=== PATIENT | male | born 1995 | race Caucasian/White ===

== ENCOUNTER 2020-01-29 21:47 | Emergency (ER) | payer OTHER, SELFPAY ==
[2020-01-29 21:57] VITALS: BP 149/75; PULSE 90; PULSE 98; RESP 14; TEMP 36.4; O2SAT 100; O2SAT 99; BMI 31.6
--- NOTE | 2020-01-29 22:23 | ECG_ITS ---
Test Reason : OVERDOSE Blood Pressure : / mmHG Vent. Rate : 075 BPM Atrial Rate : 075 BPM P-R Int : 142 ms QRS Dur : 108 ms QT Int : 370 ms P-R-T Axes : 031 064 011 degrees QTc Int : 413 ms Normal sinus rhythm Normal ECG When compared with ECG of 22-JUN-2017 07:40, No significant change was found Referred By: Aranza Horn Electronically Signed By:VANNESSA LOBATO MD
--- NOTE | 2020-01-29 22:36 | ED.GENADULT ---
HPI - General Adult General Chief complaint: General Medical Stated complaint: substance use Time Seen by Provider: 01/29/20 22:21 Source: patient Mode of arrival: ambulatory Limitations: no limitations History of Present Illness HPI narrative: this is a 24-year-old male who presents after having taken 4 puffs of some marijuana at the [facility] and states that he then became very lightheaded and felt somewhat disoriented with exacerbation of his underlying anxiety and having this sensation of palpitations and sweating. Since that time patient states that his symptoms have completely resolved and he is requesting to be discharged to home. Currently, he denies any shortness of breath, chest pain / palpitations. Related Data Allergies Allergy/AdvReac Type Severity Reaction Status Date / Time FRESH FRUIT Allergy Unknown ITCHY FRUIT Uncoded 12/16/19 16:24 Fruit & Vegetable Daily Allergy Unknown Uncoded 11/05/19 00:00 latex Allergy Unknown Uncoded 11/05/19 00:00 Review of Systems Review of Systems: Pertinent positives and negatives as stated in HPI and 10 point review of systems is otherwise negative. [facility] Past Medical History Source: nursing notes reviewed Medical History Asthma Social History Social History Advance Directives: No Advance Directives Information Provided: No Physical Exam Vital Signs: Vital Signs: Vital Signs Temp Pulse Resp BP Pulse Ox 01/29/20 21:57 97.6 F 90 14 149/75 H 99 Body Mass Index 31.6 VITAL SIGNS: Reviewed. GENERAL: Well developed, well nourished, in no acute distress. HEAD: Normocephalic/atraumatic, EYES: PERRLA, EOMI intact without pain, no nystagmus/pallor/icterus noted EARS: Ext canals without abnormality, TMs non-bulging and non-erythematous NOSE: Nares patent bilateral OROPHARYNX: no oral lesions noted, posterior pharynx clear and non-erythematous without noted tonsillar enlargement/erythema/exudates NECK: Supple, no adenopathy LUNGS: Normal breath sounds. No adventitious sounds or accessory muscle use. SpO2<99> CARDIOVASCULAR: Regular rate and rhythm without noted murmurs, no JVD or lower extremity edema. ABDOMEN: Soft, non-tender, non-distended with bowel sounds. No rigidity. No guarding. No palpable masses or hernias noted MUSCULOSKELETAL: No tenderness, deformities, or effusions noted on gross inspection. EXTREMITIES: No cyanosis, clubbing or edema. SKIN: Inspection of the skin reveals no rashes, ulcerations, jaundice, pallor, or petechiae. NEUROLOGIC: Alert and oriented x 4. Strength and sensation to light touch were grossly intact x 4. Course Course Course Narrative: This is a 24-year-old female with history and clinical presentation consistent with side effects from excess marijuana use that has since completely resolved. Will obtain an EKG to evaluate for any evidence of arrhythmia and if found to be negative patient will be discharged home in stable condition. He has a safe ride home with his . Medical Decision Making ECG Data Attestation: I personally reviewed and interpreted this ECG as follows: Prior ECG tracings: available for review ( 06/22/2017 there are no acute changes) Interpretation: normal sinus rhythm, HR - 75, no evidence of acute ischemia, ID/QTC are within normal limits Discharge Plan Discharge Clinical Impression: Marijuana intoxication Qualifiers: Complication of substance-induced condition: with perceptual disturbance Qualified Code(s): F12.922 - Cannabis use, unspecified with intoxication with perceptual disturbance Patient Disposition: Home, Self-Care Instructions: Anxiety (ED) Additional Instructions: The patient and/or family acknowledge understanding of results (as applicable), diagnosis, treatment plan, need for follow up, and symptoms that should prompt a return to the emergency room. Referrals: Landen Francois MD [Primary Care Provider] - 2 days ( re-evaluation.)
== END 2020-01-29 22:51 | disposition home or self-care (01) ==
PROVIDERS: Emergency Provider Student in an Organized Health Care Education/Training Program; PCP Internal Medicine
DX: F12.922 Cannabis use, unspecified with intoxication with perceptual disturbance (principal); R00.2 Palpitations
CPT/HCPCS: 93005; 99283; 99284

== ENCOUNTER 2020-04-10 06:35 | Outpatient (REF) | payer OTHER, SELFPAY | END 2020-04-10 06:36 | disposition home or self-care (01) | LOC: HO.LAB 06:35 | PROVIDERS: PCP Internal Medicine; Visit Provider Internal Medicine | DX: Z20.822 Contact with and (suspected) exposure to COVID-19 (principal) | CPT/HCPCS: 36415; C9803; U0003 ==

== ENCOUNTER 2020-04-12 13:21 | Outpatient (REF) | payer OTHER, SELFPAY ==
[2020-04-12 13:50] LABS: MANUAL DIFF FLAG NO
[2020-04-12 13:57] LABS: Basophils Percent Auto 0.6 % (0-2); Eosinophils Percent Auto 0.6 % (0-4); Hematocrit 47.5 % (42-52); Hemoglobin 16.2 g/dl (14.0-18.0); Imm Gran Abs Auto 0.01 X10*3/uL (0.00-0.03); Imm Gran Pct Auto 0.2 % (0.0-0.4); Lymphocytes Absolute Auto 1.7 X10*3/uL (1.2-4.9); Lymphocytes Percent Auto 27.9 % (20-40); Mean Corpuscular HGB Conc 34.1 g/dl (31.0-36.0); Mean Corpuscular Hemoglobin 29.3 pg (27.0-33.0); Mean Corpuscular Volume 85.9 fL (80-98); Monocytes Absolute Auto 0.4 X10*3/uL (0.1-1.2); Monocytes Percent Auto 6.7 % (2-11); Platelet Count 271 X10*3/uL (160-400); Red Blood Count 5.53 X10*6/uL (4.60-5.80); Red Cell Distribution Width 11.9 % (11.0-16.0); White Blood Count 6.2 X10*3/uL (4.8-10.8)
[2020-04-12 14:37] LABS: Alanine Aminotransferase 33 U/L (0-40); Albumin Level 4.9 g/dL (3.5-5.0); Alkaline Phosphatase 66 U/L (39-117); Anion Gap 14 (12-20); Aspartate Amino Transferase 20 U/L (5-37); Bilirubin Total 0.8 mg/dL (0.0-1.0); Blood Urea Nitrogen 12 mg/dL (9-16); Calcium 9.8 mg/dL (8.4-10.2); Carbon Dioxide 27 mmol/L (22-29); Chloride 102 mmol/L (96-108); Cholesterol 208 mg/dL; Estimated Glomerular Filt Rate > 60; Glucose Random 93 mg/dL (60-115); HDL Cholesterol 45 mg/dL; LDL Cholesterol Calculated 144 mg/dl; Potassium 4.2 mmol/l (3.3-5.1); Sodium 139 mmol/L (135-145); Total Protein 8.1 g/dL (6.5-8.0); Triglycerides 95 mg/dL
[2020-04-12 15:00] LABS: Free T4 (Free Thyroxine) 1.01 ng/dL (0.71-1.85); Thyroid Stimulating Hormone 1.46 uIU/mL (0.32-4.0)
[2020-04-12 15:03] LABS: Vitamin B12 555 pg/mL (200-900)
== END 2020-04-12 13:22 | disposition home or self-care (01) ==
LOC: HO.LAB 13:21
PROVIDERS: PCP Internal Medicine; Visit Provider Internal Medicine
DX: K76.0 Fatty (change of) liver, not elsewhere classified (principal); E78.00 Pure hypercholesterolemia, unspecified
CPT/HCPCS: 36415; 80053; 80061; 82607; 82746; 84439; 84443; 85025

== ENCOUNTER 2020-04-18 08:28 | Outpatient (REF) | payer OTHER, SELFPAY ==
--- NOTE | 2020-04-18 08:34 | US_ITS ---
EXAMINATION: US ABDOMEN COMPLETE CLINICAL INFORMATION: Splenomegaly, not elsewhere classified. COMPARISON: Ultrasound abdomen complete dated 02/10/2019. TECHNIQUE: Real-time imaging of the abdominal viscera. FINDINGS: PANCREAS: The pancreas is homogeneous in echotexture without focal lesion. ABDOMINAL AORTA: The proximal, mid, and distal segments are normal in caliber. INFERIOR VENA CAVA: Visualized portions are normal. LIVER: The liver is normal size, normal surface contour and echotexture. No focal hepatic lesion. There is no intrahepatic biliary duct dilatation seen. GALLBLADDER: Normal. The gallbladder is physiologically distended without evidence of stones, sludge, polyps, wall thickening or pericholecystic fluid. COMMON BILE DUCT: Normal in caliber measuring 0.23 cm in diameter. RIGHT KIDNEY: There is an echogenic stone in the upper pole measuring 0.40 x 0.43 x 0.49 cm. No additional echogenic stones seen. There is no caliectasis. No hydronephrosis or focal parenchymal lesions. The kidney measures 11.0 cm in maximum dimension. Minimal free fluid is seen surrounding the right kidney. LEFT KIDNEY: Normal. No hydronephrosis. No renal calculi or focal parenchymal lesions. The kidney measures 10.3 cm in maximum dimension. SPLEEN: Normal. The spleen measures 13.0 cm in maximum dimension. FREE FLUID: None. US/US abdomen complete IMPRESSION: Mild hepatic steatosis. No focal lesion seen. Nonobstructive echogenic stone upper pole right kidney. No caliectasis or hydronephrosis. There is trace free fluid adjacent to the right kidney in the perinephric space.
== END 2020-04-18 08:29 | disposition home or self-care (01) ==
LOC: HO.HMGCX 08:28
PROVIDERS: PCP Internal Medicine; Visit Provider Internal Medicine
DX: R16.1 Splenomegaly, not elsewhere classified (principal); K76.0 Fatty (change of) liver, not elsewhere classified
CPT/HCPCS: 76700

== ENCOUNTER → 2020-10-04 10:34 | Outpatient (BNVA) | payer SELFPAY | PROVIDERS: PCP Internal Medicine; Visit Provider Physician Assistant Medical | DX: Z02.79 Encounter for issue of other medical certificate (principal) ==

== ENCOUNTER 2021-05-23 11:47 | Outpatient (REF) | payer OTHER, SELFPAY ==
[2021-05-23 12:19] LABS: COVID-19 Test Positive (Negative)
== END 2021-05-23 11:48 | disposition home or self-care (01) ==
LOC: HO.LAB 11:47
PROVIDERS: Visit Provider Internal Medicine
DX: Z20.822 Contact with and (suspected) exposure to COVID-19 (principal)
CPT/HCPCS: 87635; C9803

== ENCOUNTER 2021-07-20 14:57 | Outpatient (REF) | payer OTHER, SELFPAY ==
[2021-07-20 15:28] LABS: COVID-19 Test Negative (Negative); IDNOW Serial# 16C4AD1C
== END 2021-07-20 14:58 | disposition home or self-care (01) ==
LOC: HO.LAB 14:57
PROVIDERS: PCP Internal Medicine; Visit Provider Internal Medicine
DX: Z20.822 Contact with and (suspected) exposure to COVID-19 (principal)
CPT/HCPCS: 87635; C9803

== ENCOUNTER 2021-09-18 15:18 | Outpatient (REF) | payer OTHER, SELFPAY ==
--- NOTE | 2021-09-18 17:33 | MHC.AU.AEV ---
Adult Audiological Evaluation Date of Visit: 09/18/21 Reason for Appointment: Audiological evaluation due to concern for decreased hearing. Mr. Arzate notes difficulties hearing from the right ear over the past few years. He notes that it has felt blocked for a couple months, with discomfort and draining/wetness in his ear when he wakes up in the morning. He notes tinnitus in his right ear only. He denies an significant concerns for his left ear. On 08/01/21 he was seen at his primary care office, and it was noted TM normal on the left, TM abnormal (right) erythematous and Rinne test (negative) . He was diagnosed with otitis media and prescribed Augmentin and Sudafed at that time, which he felt didn't help. Does patient feel they have a hearing loss?: Yes If Yes, Which Ear?: Right Ear When Was Hearing Difficulty First Noticed?: Couple years ago Has hearing been tested previously?: No Hearing Handicap Inventory HHIE SCORE: 18 Based on HHIE score, patient has: Mild to moderate perceived hearing handicap Ear History: Bothersome Tinnitus/Ringing/Noises in Ears: Right Ear History of occupational noise exposure?: Yes: Working with [employer], 1 year Medical History: Medical History:Per EMR: Migraines with photophobia 3-4 years, which worsened after having COVID-19. Anxiety, Asthma, Fatty liver, Hypercholesterolemia Allergies: latex, fresh fruits Medication List: Xopenex, vitamins Otoscopy: Right Ear: Completely occluding cerumen. Very deeply impacted, likely has been for many months. Removed entirely without incident using lighted curette, suction, and EarWax M.D. drops. Left Ear: Partially occluded with cerumen. Removed entirely without incident using lighted curette. Tympanometry: Tympanometry performed due to: To assess integrity of the middle ear system Right Ear: Hypercompliant Middle Ear System (Type Ad) Left Ear: Normal Middle Ear System (Type A) Otoacoustic Emissions Frequency Range Used: 1.6-8 kHz Right Ear Results: Present 5142-1419 & 3732-6371 Hz. Reduced at 5000 Hz. Analysis: Present emissions suggest normal function in those cochlear regions. Reduced/Absent emissions suggest dysfunction in those cochlear regions. Left Ear Results: Present Emissions Analysis: Present emissions suggest normal cochlear function. Rules out peripheral hearing loss greater than a mild degree. Hearing Evaluation: Transducer(s) Used: Insert Earphones, Bone Conduction Method: Conventional Audiometry Stimuli Used: Pure Tones Right Ear: Description of Hearing: Mild sensorineural hearing loss 250-500 Hz, mild conductive hearing loss at 1000 Hz, rising to normal/borderline-normal hearing from 7193-5230 Hz. Left Ear: Description of Hearing: Borderline-normal hearing from 250-1000 Hz rising to normal hearing from 6207-6254 Hz. Speech Recognition Threshold (SRT): Method Used: Monitored Live Voice Stimuli Used: Spondee Words Right Ear: 20 dBHL Left Ear: 5 dBHL Word Discrimination: Method: Recorded Lists Word Lists Used:: NU-6 Right Ear: 92% at 60 dBHL Left Ear: 100% at 55 dBHL Interpretation of Results: Mr. Arzate noted significant improvement in hearing in the right ear immediately following cerumen removal. Most of his right sided symptoms were likely related to longstanding cerumen impaction. Mild low-frequency hearing loss in the right ear persist despite cerumen removal. Hearing loss of this degree is not likely to have a significant impact on hearing sensitivity. Recommendations: Audiological re-evaluation in 6 months to monitor hearing and cerumen build-up. 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
--- NOTE | 2021-09-18 17:38 | MHC.AU.P13 ---
Adult Audiological Evaluation Date of Visit: 09/18/21 Reason for Appointment: Audiological evaluation due to concern for decreased hearing. Mr. Arzate notes difficulties hearing from the right ear over the past few years. He notes that it has felt blocked for a couple months, with discomfort and draining/wetness in his ear when he wakes up in the morning. He notes tinnitus in his right ear only. He denies an significant concerns for his left ear. On 08/01/21 he was seen at his primary care office, and it was noted TM normal on the left, TM abnormal (right) erythematous and Rinne test (negative) . He was diagnosed with otitis media and prescribed Augmentin and Sudafed at that time, which he felt didn't help. Does patient feel they have a hearing loss?: Yes If Yes, Which Ear?: Right Ear When Was Hearing Difficulty First Noticed?: Couple years ago Has hearing been tested previously?: No Hearing Handicap Inventory HHIE SCORE: 18 Based on HHIE score, patient has: Mild to moderate perceived hearing handicap Ear History: Bothersome Tinnitus/Ringing/Noises in Ears: Right Ear History of occupational noise exposure?: Yes: Working with [employer], 1 year Medical History: Medical History:Per EMR: Migraines with photophobia 3-4 years, which worsened after having COVID-19. Anxiety, Asthma, Fatty liver, Hypercholesterolemia Allergies: latex, fresh fruits Medication List: Xopenex, vitamins Otoscopy: Right Ear: Completely occluding cerumen. Very deeply impacted, likely has been for many months. Removed entirely without incident using lighted curette, suction, and EarWax M.D. drops. Left Ear: Partially occluded with cerumen. Removed entirely without incident using lighted curette. Tympanometry: Tympanometry performed due to: To assess integrity of the middle ear system Right Ear: Hypercompliant Middle Ear System (Type Ad) Left Ear: Normal Middle Ear System (Type A) Otoacoustic Emissions Frequency Range Used: 1.6-8 kHz Right Ear Results: Present 9579-1761 & 4540-5428 Hz. Reduced at 5000 Hz. Analysis: Present emissions suggest normal function in those cochlear regions. Reduced/Absent emissions suggest dysfunction in those cochlear regions. Left Ear Results: Present Emissions Analysis: Present emissions suggest normal cochlear function. Rules out peripheral hearing loss greater than a mild degree. Hearing Evaluation: Transducer(s) Used: Insert Earphones, Bone Conduction Method: Conventional Audiometry Stimuli Used: Pure Tones Right Ear: Description of Hearing: Mild sensorineural hearing loss 250-500 Hz, mild conductive hearing loss at 1000 Hz, rising to normal/borderline-normal hearing from 9654-1872 Hz. Left Ear: Description of Hearing: Borderline-normal hearing from 250-1000 Hz rising to normal hearing from 7426-1903 Hz. Speech Recognition Threshold (SRT): Method Used: Monitored Live Voice Stimuli Used: Spondee Words Right Ear: 20 dBHL Left Ear: 5 dBHL Word Discrimination: Method: Recorded Lists Word Lists Used:: NU-6 Right Ear: 92% at 60 dBHL Left Ear: 100% at 55 dBHL Interpretation of Results: Mr. Arzate noted significant improvement in hearing in the right ear immediately following cerumen removal. Most of his right sided symptoms were likely related to longstanding cerumen impaction. Mild low-frequency hearing loss in the right ear persist despite cerumen removal. Hearing loss of this degree is not likely to have a significant impact on hearing sensitivity. Recommendations: Audiological re-evaluation in 6 months to monitor hearing and cerumen build-up. 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
== END 2021-09-18 15:19 | disposition home or self-care (01) ==
LOC: HO.SH 15:18
PROVIDERS: Visit Provider Nurse Practitioner Family
DX: Z01.118 Encounter for examination of ears and hearing with other abnormal findings (principal); H93.11 Tinnitus, right ear; H90.71 Mixed conductive and sensorineural hearing loss, unilateral, right ear, with unrestricted hearing on the contralateral side; H61.21 Impacted cerumen, right ear
CPT/HCPCS: 92557; 92567; 92588

== ENCOUNTER 2022-01-31 15:07 | Emergency (ER) | payer OTHER, SELFPAY ==
--- NOTE | ~2022-01-31 | XR_ITS ---
EXAMINATION: XR CERVICAL SPINE CLINICAL INFORMATION: Pain COMPARISON: None TECHNIQUE: 4 views of the cervical spine were obtained. FINDINGS: The cervical spine is visualized in its entirety. Normal alignment. C1/C2 articulation is within normal limits. Cervical vertebral body heights and disc spaces are well-maintained. No appreciable degenerative changes in. No prevertebral soft tissue swelling. Visualized lung apices are well aerated. XR/XR cervical spine 3V IMPRESSION: Unremarkable radiographs of the cervical spine.
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
[2022-01-31 15:23] VITALS: BP 145/80; PULSE 85; RESP 18; TEMP 36.1; O2SAT 99; BMI 31.5
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
--- OUTSIDE RECORDS SUMMARY | 2022-01-31 17:07 | XMS_ITS | Continuity of Care Document ---
:1995 Author Organization [facility] Address [address] [place] [address]- Care Team Providers Name Role Phone Po Landen AGUILLON Primary Care Physician [facility]counter [facility] Date(s): 04/27/19 - 08/25/19 [facility] [address] [place] [id number] [facility] Attending Physician: Richard Carrera MD Admitting Physician: Richard Carrera MD Referring Physician: Jonathan Ferro MD Allergies, Adverse Reactions, Alerts Substance Reaction Severity Status Other Food Allergy fruits or vegetables - anaphylaxis Active Immunizations Given and Recorded Vaccine Date Status Refusal Reason influenza virus vaccine, inactivated 04/23/17 Recorded influenza virus vaccine, inactivated 12/19/15 Recorded influenza virus vaccine, inactivated 12/15/14 Recorded influenza virus vaccine, inactivated 01/07/14 Recorded influenza virus vaccine, inactivated 12/30/12 Recorded influenza virus vaccine, inactivated 01/15/12 Recorded influenza virus vaccine, inactivated 12/25/10 Recorded influenza virus vaccine, inactivated 12/29/09 Recorded influenza virus vaccine, inactivated 12/27/08 Recorded influenza virus vaccine, inactivated 02/03/08 Recorded influenza virus vaccine, inactivated 03/10/07 Recorded tetanus/diphtheria/pertussis, acel(Tdap) 01/15/17 Recorde d tetanus/diphtheria/pertussis, acel(Tdap) 11/17/06 Recorde d Meningococcal Conjugate Vaccine 08/01/15 Recorded Meningococcal Conjugate Vaccine 11/17/06 Recorded Hepatitis A Adult Vaccine 02/07/15 Recorded Hepatitis A Adult Vaccine 08/03/14 Recorded Varicella Virus Vaccine 11/17/06 Recorded Varicella Virus Vaccine 08/11/96 Recorded Poliovirus Vaccine, Inactivated 12/04/99 Recorded Poliovirus Vaccine, Inactivated 95 Recorded Poliovirus Vaccine, Inactivated 95 Recorded Measles/Mumps/Rubella Virus Vaccine 12/04/99 Recorded Measles/Mumps/Rubella Virus Vaccine 05/12/96 Recorded diphtheria/tetanus/pertussis, acel(DTaP) 12/04/99 Recorde d diphtheria/tetanus/pertussis, acel(DTaP) 08/11/96 Recorde d diphtheria/tetanus/pertussis, acel(DTaP) 95 Recorde d diphtheria/tetanus/pertussis, acel(DTaP) 95 Recorde d diphtheria/tetanus/pertussis, acel(DTaP)1 95 Record ed hepatitis B pediatric vaccine 95 Recorded hepatitis B pediatric vaccine 95 Recorded hepatitis B pediatric vaccine 95 Recorded 1Location History: [facility] See Instructions, # 1 each, Refills 0, Tot. Refills 0, Maintenance, for use with prescribed medication, 07/04/16 11:13:09, Compound Start Date: 07/04/16 Status: OrderedFlovent HFA 220 mcg/inh inhalation aerosol 2 puffs, Inhalation, 2 times a day, # 12 Gm, 0 Refills, Maintenance, 06/23/17 14:40:25 EDT, Aerosol Start Date: 06/23/17 Status: OrderedXopenex 0.63 mg/3 mL inhalation solution 3 mL = 0.63 mg, Neb, 3 times a day, 0 Refills, Maintenance, 06/23/17 14:41:48 EDT Start Date: 06/23/17 Status: OrderedXopenex HFA 45 mcg/inh inhalation aerosol 2 puffs = 90 mcg, Inhalation, Every 4 hours, PRN for wheezing, PER DR FERRO, # 1 each, 0 Refills, Maintenance, 09/18/17 13:46:45 EDT, Aerosol Start Date: 09/18/17 Status: Ordered Problem List Condition Effective Dates Status Health Status Informant Allergic rhinitis(Confirmed) Active Asthma with acute Active exacerbation(Confirmed) 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
--- OUTSIDE RECORDS SUMMARY | 2022-01-31 17:07 | XMS_ITS | Continuity of Care Document ---
:1995 Author Organization [facility] Address [address] [place] [address]- Care Team Providers Name Role Phone Po Landen AGUILLON Primary Care Physician [facility] Date(s): 07/26/19 - 08/25/19 [facility] [address] [place] [id number] [facility] Attending Physician: AdmNavi jung Admitting Physician: Admtr, Ar8 Referring Physician: Admtr, Ar8 Allergies, Adverse Reactions, Alerts Substance Reaction Severity [...] B pediatric vaccine 95 Recorded 1Location History: [facility] See Instructions, # 1 [...]
[2022-01-31] MEDS: Cyclobenzaprine HCl 10 MG TABLET PO (17:47)
[2022-01-31] MEDS: Ketorolac Tromethamine 60 MG/2 ML VIAL IM (17:48)
== END 2022-01-31 21:21 | disposition home or self-care (01) ==
PROVIDERS: Emergency Provider Emergency Medicine; PCP Internal Medicine
DX: S13.4XXA Sprain of ligaments of cervical spine, initial encounter (principal); S39.012A Strain of muscle, fascia and tendon of lower back, initial encounter; V43.52XA Car driver injured in collision with other type car in traffic accident, initial encounter; Y93.89 Activity, other specified; Y92.414 Local residential or business street as the place of occurrence of the external cause; Y99.9 Unspecified external cause status
CPT/HCPCS: 72040; 72100; 96372; 99283; 99284; J1885

== ENCOUNTER → 2022-05-13 12:52 | Outpatient (BNVA) | payer OTHER, SELFPAY | PROVIDERS: PCP Internal Medicine; Visit Provider Anesthesiology | DX: Z13.89 Encounter for screening for other disorder (principal) ==

== ENCOUNTER 2022-06-04 19:26 | Outpatient (REF) | payer OTHER, SELFPAY ==
--- NOTE | ~2022-06-04 | MR_ITS ---
EXAMINATION: MR LUMBAR SPINE WITHOUT CONTRAST CLINICAL INFORMATION: Low back pain COMPARISON: None TECHNIQUE: MRI of the lumbar spine was obtained using routine sequences without contrast. FINDINGS: There is a relatively well-formed S1-S2 disc space with 5 lumbar type vertebral bodies. Trace retrolisthesis of L5 on S1. Vertebral body heights are maintained. There is no suspicious osseous lesion. Disc desiccation and mild disc height loss at L5-S1. Level by level detail as follows: L1-L2: No spinal canal or neural foraminal stenosis. L2-L3: No spinal canal or neural foraminal stenosis. L3-L4: No spinal canal or neural foraminal stenosis. L4-L5: Trace annular disc bulge with mild bilateral facet hypertrophy. No spinal canal or neural foraminal stenosis. L5-S1: Left eccentric disc bulge with inferiorly migrated left paracentral disc extrusion with associated annular fissure causing mass effect along the traversing left S1 nerve root in the subarticular zone. No overt spinal canal stenosis. Mild to moderate lateral neural foraminal stenosis with contact along the exiting L5 nerve roots. The conus medullaris terminates at the level of L1-L2. The distal spinal cord is normal in appearance. . No epidural fluid collection, hematoma, or mass. No significant abnormalities of the paraspinal musculature. Limited evaluation of the intra-abdominal structures without significant abnormalities. The abdominal aorta is of normal contour and caliber. MR/MR lumbar spine wo con IMPRESSION: At L5-S1, there is mild discogenic disease and left eccentric disc bulge with inferiorly migrated left paracentral disc extrusion with associated annular fissure causing mass effect along the traversing left S1 nerve root in the subarticular zone. Mild to moderate bilateral neural foraminal stenosis with contact along the exiting L5 nerve roots.
== END 2022-06-04 19:27 | disposition home or self-care (01) ==
LOC: HO.MRI 19:26
PROVIDERS: PCP Internal Medicine; Visit Provider Internal Medicine
DX: M54.50 Low back pain, unspecified (principal)
CPT/HCPCS: 72148

== ENCOUNTER 2022-11-13 11:21 | Outpatient (AMB) | payer OTHER, SELFPAY ==
[2022-11-13 11:31] VITALS: BP 130/76; PULSE 83; O2SAT 98; BMI 32.4
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
== END 2022-11-13 11:54 | disposition home or self-care (01) ==
PROVIDERS: PCP Internal Medicine; Visit Provider Internal Medicine
DX: J45.909 Unspecified asthma, uncomplicated (principal); K21.9 Gastro-esophageal reflux disease without esophagitis; Z68.32 Body mass index [BMI] 32.0-32.9, adult; E66.9 Obesity, unspecified; K76.0 Fatty (change of) liver, not elsewhere classified; E78.00 Pure hypercholesterolemia, unspecified; F41.1 Generalized anxiety disorder
CPT/HCPCS: 99214

== ENCOUNTER → 2022-12-20 14:59 | Outpatient (BNVA) | payer SELFPAY | PROVIDERS: PCP Internal Medicine; Visit Provider Physician Assistant | DX: Z02.79 Encounter for issue of other medical certificate (principal) ==

== ENCOUNTER → 2024-09-24 12:15 | Outpatient (BNVA) | payer OTHER, SELFPAY | PROVIDERS: PCP Internal Medicine; Visit Provider Physician Assistant | DX: T25.211A Burn of second degree of right ankle, initial encounter (principal); X12.XXXA Contact with other hot fluids, initial encounter; Z02.79 Encounter for issue of other medical certificate | CPT/HCPCS: 99203 ==

== ENCOUNTER → 2024-12-10 15:04 | Outpatient (BNVA) | payer OTHER, SELFPAY | PROVIDERS: PCP Internal Medicine; Visit Provider Physician Assistant | DX: Z02.79 Encounter for issue of other medical certificate (principal) ==

== ENCOUNTER 2025-02-15 11:22 | Outpatient (AMB) | payer BC, SELFPAY ==
--- NOTE | 2025-02-15 11:25 | MHC.OFFWIV ---
Intake Vital Signs 02/15/25 11:26 Height 5 ft 10 in BP 122/90 H Blood Pressure Location Lt brachial Position Sitting Pulse 69 Pulse Source Pulse Oximeter Pulse Oximetry (%) 98 Oxygen Delivery Method Room Air Intake Visit Reasons: EP Consistent headaches Intake Note: Patient presents c/o continuous migraines/headaches, nausea x1 1/2 weeks. Patient Tobacco Use Status: Never used Tobacco Allergies latex Allergy (Unknown, Verified 02/15/25 11:29) Unknown HPI HPI Comments History of Present Illness Details History of Present Illness - The patient is a 30-year-old male presenting with headaches. - The patient reports a history of migraines that have recently recurred after a period of remission. - Detailed Description of the Problem: The migraines have been persistent for approximately a week and a half, accompanied by light sensitivity and occasional nausea. No vomiting or sound sensitivity. - The patient has been using ibuprofen without much relief. - The patient previously wore tinted glasses to manage light sensitivity but has since stopped wearing glasses. They broke and he hasn't replaced them yet. He did just get anohter eye exam but hasn't ordered glasses yet. [facility] Medical History Allergic reaction Anxiety Asthma Fatty liver Hypercholesterolemia Low back pain Lumbar radicular pain Obesity (BMI 30-39.9) Right renal stone SOB (shortness of breath) Surgical History History of testicular surgery Family History Father Prostate cancer Mother No problems noted. Paternal Uncle Prostate cancer Maternal Grandfather Myocardial infarction Maternal Aunt Stomach cancer Social History Housing: House Alcohol intake: current Alcohol intake frequency: holidays/special occasions only Patient Tobacco Use Status: Never used Tobacco e-Cigarette/Vaping Use: Never Used Second Hand Smoke Exposure: No Substance Use Type: Marijuana service: No Current occupational status: employed Current occupational exposures/hazards: No Cognitive needs: No Hearing needs: No Vision needs: Yes Review of Systems Narrative Review of Systems - Neurological: Reports migraines and light sensitivity. Denies sound sensitivity. - Gastrointestinal: Reports occasional nausea. All systems reviewed and are unremarkable except as noted in HPI Const All systems reviewed & are unremarkable except as noted in HPI and below Physical Exam Exam Exam: Physical Exam General: Cooperative, healthy appearing, comfortable, no acute distress and well developed Orientation: Patient oriented x3 Limitations: No limitations Head: Normal to inspection Ears: Hearing grossly normal bilaterally Nose: Normal External nose present Face and sinus: Normal facial exam Eyes: Appearance normal, both eyes and all related structures Neck: Normal visual inspection and Yes full ROM Respiratory: Normal respiratory effort and able to speak in complete sentences. Skin: No rashes or lesions noted Neuro: Patient oriented x3 Extremities: Normal to inspection Vital Signs: Last Vital Signs Pulse 69 02/15/25 11:26 BP 122/90 H 02/15/25 11:26 Pulse Ox 98 02/15/25 11:26 Oxygen Delivery Method Room Air 02/15/25 11:26 Assessment & Plan Assessment & Plan (1) Tension type headache: Code(s): G44.209 - Tension-type headache, unspecified, not intractable Qualifiers: Headache chronicity pattern: acute headache Intractability: not intractable Qualified Code(s): G44.209 - Tension-type headache, unspecified, not intractable Plan: Patient was informed and verbally consented to the use of an ambient scribe for clinic note documentation during this visit. Migraine - Recommended treatment with Tylenol 1000 mg every 8 hours, ibuprofen 600mg every 6 hours, stay well hydrated and use extra caffeine for headache relief. - Suggested obtaining prescription glasses to manage light sensitivity, potentially reducing migraine triggers. - If symptoms continue after doing these interventions and obtaining a current prescription and new glasses, please see your PCP. - if you experience ?the worst headache of your life , please go to the emergency department. Plan Plan Coding Level of Care Code Est Pt Level 3 (21986) Diagnoses Acute non intractable tension-type headache G44.209 Headache chronicity pattern: acute headache Intractability: not intractable
[2025-02-15 11:26] VITALS: BP 122/90; PULSE 69; O2SAT 98
== END 2025-02-15 12:23 | disposition home or self-care (01) ==
PROVIDERS: PCP Internal Medicine; Visit Provider Physician Assistant
DX: G44.209 Tension-type headache, unspecified, not intractable (principal)